=== PATIENT | female | born 1985 | race Caucasian/White ===

== ENCOUNTER 2021-02-01 20:02 | Emergency (ER) | payer BC ==
[2021-02-01] MEDS ORDERED: Metoclopramide HCl 10 MG/2 ML VIAL ONE (20:32)
[2021-02-01] MEDS ORDERED: diphenhydrAMINE 50 MG/ML VIAL ONE (20:32)
[2021-02-01] MEDS ORDERED: Acetaminophen 500 MG TAB ONE (20:32)
[2021-02-01] MEDS ORDERED: Magnesium 2 GM/50 ML BAG (IN WATER) ONE (20:32)
[2021-02-01 20:39] LABS: #Basophils 0.1 10x3/uL (0.0-0.2); #Eosinphils 0.2 10x3/uL (0.0-0.5); #Monocytes 0.6 10x3/uL (0.0-1.1); #Neutrophils 7.4 10x3/uL (1.5-8.4); %Basophils 0.5 % (0.0-2.0); %Eosinophils 1.6 % (0.0-6.0); %Lymphocytes 22.6 % (18.0-47.0); %Monocytes 5.6 % (0.0-10.0); %Neutrophils 69.3 % (40.0-75.0); Hemoglobin 13.8 g/dL (12.0-15.5); Mean Corpuscular Hemoglobin 28.2 pg (27.0-33.0); Mean Corpuscular Volume 85.5 fl (81.6-98.3); Mean Platelet Volume 9.8 fl (7.4-10.4); Platelet Count 295 10x3/uL (150-450); RBC Distribution Width 12.5 % (11.5-14.5); Red Blood Cell (RBC) Count 4.89 10x6/uL (3.90-5.03); White Blood Cell (WBC) Count 10.7 10x3/uL (3.5-10.5)
[2021-02-01 20:54] LABS: ALT (SGPT) 71 U/L (8-55); AST (SGOT) 39 U/L (5-34); Albumin 4.2 g/dL (3.5-5.0); Alkaline Phosphatase 107 U/L (40-110); Anion Gap 11 mmol/L (10-20); BUN (Urea Nitrogen) 12 mg/dL (7.0-18.7); Bilirubin, Total 0.5 mg/dL (0.2-1.2); CK (CPK) 76 U/L (29-168); Calc. Creatinine Clearance 0 mL/min (70-130); Calcium 9.6 mg/dL (7.8-10.44); Carbon Dioxide 28 mmol/L (22-29); Chloride 104 mmol/L (98-107); Globulin 3.2 g/dL (2.4-3.5); Glucose 106 mg/dL (70-105); Magnesium 2.1 mg/dL (1.6-2.6); Potassium 4.1 mmol/L (3.5-5.1); Protein, Total 7.4 g/dL (6.0-8.3); Sodium 139 mmol/L (136-145)
== END 2021-02-01 22:08 | disposition home or self-care (01) ==
LOC: CSHERS 20:02
DX: R11.2 Nausea with vomiting, unspecified (principal); R19.7 Diarrhea, unspecified; Z79.899 Other long term (current) drug therapy
CPT/HCPCS: 80053; 82550; 83735; 85025; 96365; 96368; 96375; J1200; J2765; J3475

== ENCOUNTER 2021-12-27 15:15 | Outpatient (CLI) | payer BC | END 2021-12-27 15:16 | disposition home or self-care (01) | LOC: CSHULT 15:15 | PROVIDERS: ATTEND Family Medicine | DX: R10.9 Unspecified abdominal pain (principal); R79.89 Other specified abnormal findings of blood chemistry; R74.8 Abnormal levels of other serum enzymes; K76.0 Fatty (change of) liver, not elsewhere classified; K80.20 Calculus of gallbladder without cholecystitis without obstruction; K82.8 Other specified diseases of gallbladder | CPT/HCPCS: 76705 ==

== ENCOUNTER 2024-11-03 14:23 | Outpatient (CLI) | payer OTHER | END 2024-11-03 14:24 | disposition home or self-care (01) | LOC: CSHRAD 14:23 | PROVIDERS: ATTEND Family Medicine | DX: R10.84 Generalized abdominal pain (principal) | CPT/HCPCS: 74019 ==